=== PATIENT | male | born 1985 | race Caucasian/White ===

== ENCOUNTER 2018-09-15 21:36 | Emergency (ER) | payer SELFPAY ==
[2018-09-15 21:53] VITALS: TEMP 98.3
[2018-09-15] MEDS ORDERED: predniSONE 20 MG TAB PO ONE (21:54)
[2018-09-15] MEDS ORDERED: PROMETHAZINE HCL 25 MG TAB PO ONE (21:55)
[2018-09-15] MEDS ORDERED: POTASSIUM CHLORIDE ELIXIR 20 MEQ/15 ML UD PO ONE (23:19)
--- NOTE | 2018-09-15 23:23 | ED.PDOC ---
History of Present Illness - General Chief Complaint: GI Problem Stated Complaint: dizzy and diarrhea since Saturday morning Time Seen by Provider: 09/15/18 21:38 Source: patient Exam Limitations: no limitations - History of Present Illness Initial Comments: the patient's 33-year-old male presenting to the emergency room secondary to dizziness for the last 2 days. He did have one episode of what sounds like true vertigoto start the process. No definite fevers. No hearing changes. No tinnitus. No syncope or near syncope. No focal neurological changes otherwise. He has had a couple of episodes of nausea and vomiting. Timing/Duration: other - 2 days Severity: moderate Improving Factors: nothing Worsening Factors: nothing Associated Symptoms: loss of appetite, malaise, nausea/vomiting Allergies/Adverse Reactions: Allergies NO KNOWN ALLERGY Allergy (Verified 09/15/18 21:52) Home Medications: Ambulatory Orders Meclizine HCl 25 mg PO Q6HRS PRN #20 tab 09/15/18 Ondansetron [Ondansetron Odt] 4 mg PO Q8HR PRN #5 tab 09/15/18 predniSONE [Prednisone] 20 mg PO DAILY #3 tab 09/15/18 Review of Systems - Review of Systems Constitutional: States: malaise EENTM: States: no symptoms reported Respiratory: States: no symptoms reported Cardiology: States: no symptoms reported Gastrointestinal/Abdominal: States: nausea, vomiting Genitourinary: States: no symptoms reported Musculoskeletal: States: no symptoms reported Skin: States: no symptoms reported Neurological: States: other - dizziness and vertigo Endocrine: States: no symptoms reported All other Systems: No Change from Baseline Past Medical History (General) - Patient Medical History MRSA Source:: Wound - Vaccination History Hx Influenza Vaccination: No Family Medical History - Family History Father Family History: Unknown Physical Exam - Physical Exam General Appearance: Comfortable, No apparent distress Eye Exam: bilateral normal - PERRLA Ears, Nose, Throat: hearing grossly normal, normal ENT inspection, normal pharynx Neck: full range of motion, supple Respiratory: lungs clear, normal breath sounds, no respiratory distress, no accessory muscle use Peripheral Pulses: radial,right: 2+, radial,left: 2+, dorsalis pedis,right: 2+, dorsalis pedis,left: 2+ Gastrointestinal/Abdominal: non tender, soft Rectal Exam: deferred Back Exam: normal inspection, no CVA tenderness Extremity: normal range of motion, non-tender, normal inspection, no pedal edema, normal capillary refill 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 No vertical skew deviation. Head impulse testing lateralizes to the right. No change in visual acuity. Progress - Progress Progress: 09/15/18 23:25 the patient is a 33-year-old male presenting to the emergency room with what appears to be vertigo related to labyrinthitis, most likely on the right. He'll be placed on prednisone daily for the next 3 days and he will be written for meclizine for as needed use for the dizziness. He is mildly dehydrated as well and does need to increase his fluid intake. He does have some very mild hypokalemia and was given 1 dose here. This will need to be followed with his primary care doctor. ER warnings were given. - Results/Orders Results/Orders: Laboratory Results - last 24 hr 09/15/18 09/15/18 09/15/18 22:11 22:11 22:32 WBC 7.8 RBC 4.85 Hgb 15.0 Hct 43.2 MCV 89.1 MCH 30.9 MCHC 34.7 RDW 13.1 Plt Count 173 MPV 9.7 Absolute Neuts (auto) 4.40 Absolute Lymphs (auto) 2.50 Absolute Monos (auto) 0.60 Absolute Eos (auto) 0.10 Absolute Basos (auto) 0.10 Neutrophils % 57.3 Lymphocytes % 32.3 Monocytes % 7.7 Eosinophils % 1.7 Basophils % 1.0 Sodium 141 Potassium 3.4 L Chloride 109 Carbon Dioxide 24 Anion Gap 11.4 L BUN 16 Creatinine 0.94 BUN/Creatinine Ratio 17.0 Random Glucose 109 H Serum Osmolality 283.0 Calcium 8.8 Magnesium 2.0 Total Bilirubin 0.4 AST 24 ALT 36 Alkaline Phosphatase 50 Creatine Kinase 199 H CK-MB (CK-2) 3.0 CK-MB (CK-2) % Not Reportable Troponin I < 0.02 Serum Total Protein 7.1 Albumin 4.1 Globulin 3.0 Albumin/Globulin Ratio 1.4 TSH 1.87 Urine Color Yellow Urine Appearance Clear Urine pH 5.5 Ur Specific Calvin >= 1.030 Urine Protein Negative Urine Glucose (UA) Negative Urine Ketones Negative Urine Blood Negative Urine Nitrite Negative Urine Bilirubin Negative Urine Urobilinogen 0.2 Ur Leukocyte Esterase Negative Urine RBC 0 Urine WBC 0 Ur Epithelial Cells 0 Urine Bacteria 0 Departure - Departure Clinical Impression: Labyrinthitis of right ear, Dehydration, Hypokalemia Disposition: Discharge to Home or Self Care Condition: Fair Departure Forms: ED Discharge - Pt. Copy, Patient Portal Self Enrollment Instructions: Labyrinthitis, Vertigo (a Type of Dizziness) (DC) Diet: bland diet Activity: increase activity as tolerated Prescriptions: Meclizine HCl 25 mg PO Q6HRS PRN #20 tab PRN Reason: Dizziness Ondansetron [Ondansetron Odt] 4 mg PO Q8HR PRN #5 tab PRN Reason: Nausea/Vomiting predniSONE [Prednisone] 20 mg PO DAILY #3 tab Home Medications: Ambulatory Orders Meclizine HCl 25 mg PO Q6HRS PRN #20 tab 09/15/18 Ondansetron [Ondansetron Odt] 4 mg PO Q8HR PRN #5 tab 09/15/18 predniSONE [Prednisone] 20 mg PO DAILY #3 tab 09/15/18 Additional Instructions: the patient is a 33-year-old male presenting to the emergency room with what appears to be vertigo related to labyrinthitis, most likely on the right. He'll be placed on prednisone daily for the next 3 days and he will be written for meclizine for as needed use for the dizziness. He is mildly dehydrated as well and does need to increase his fluid intake. He does have some very mild hypokalemia and was given 1 dose here. This will need to be followed with his primary care doctor. ER warnings were given.
[2018-09-15 23:42] VITALS: BP 144/89; O2SAT 98
== END 2018-09-15 23:42 | disposition home or self-care (01) ==
LOC: ER 21:36
DX: H83.01 Labyrinthitis, right ear (principal); E86.0 Dehydration; E87.6 Hypokalemia; R11.2 Nausea with vomiting, unspecified
CPT/HCPCS: 36415; 80053; 81001; 82550; 82553; 83735; 84443; 84484; 85025; J7512; Q0169